=== PATIENT | female | born 1960 | race Caucasian/White ===

== ENCOUNTER 2018-06-22 11:32 | Inpatient (IN) | payer OTHER ==
[~2018-06-22] VITALS: Ht 157.5 cm; Wt 108.1 kg
--- NOTE | 2018-06-22 11:50 | NUR ---
58 YR OLD FEMALE ARRIVED VIA CARE FLIGHT FROM [facility] WITH C/O CP AND SOB. PT SEEN AT [facility] 3 DAYS FOR SAME, SENT HOME WITH INJHALERS, ABX AND STEROIDS. PT TODAY WITH BP ELEVATED "280 SYSTOLIC" TROPONIN ELEVATED. PT ARRIVED WITH HEPARIN GTT INFUSING, NTG INFUSING, PT RECEIVED 325MG ASPIRIN SOIL SURVEYOR, DUONEB, ZOFRAN AND LABELATOL. PT INITIALLY WITH NRB IN PLACE. PLACED ON NC AT 3L, SR PER MONITOR, AUTO BP AND PULSE OX IN PLACE.
[2018-06-22] MEDS ORDERED: ALBU8.5H8 INH (12:08)
[2018-06-22] MEDS ORDERED: AMOX-291 PO (12:08)
[2018-06-22] MEDS ORDERED: METH4TAB6 PO (12:08)
--- NOTE | 2018-06-22 12:30 | NUR ---
DR SHOOK AT BEDSIDE TO EVAL PT
--- NOTE | 2018-06-22 12:32 | NUR ---
PT CONT TO DENY CP AT THIS TIME, SR PER MONITOR.
[2018-06-22 13:10] LABS: MEAN CORPUSCULAR HEMOGLOBIN 26.7 pg (27.0-34.8); MEAN CORPUSCULAR HGB CONC 32.4 g/dL (32.4-35.8); MEAN CORPUSCULAR VOLUME 82.5 fL (80-100); MEAN PLATELET VOLUME 10.4 fL (7.4-10.4); PLATELET COUNT 250 x10^3/uL (130-400); RED BLOOD COUNT 5.48 x10^6/uL (3.82-5.3); RED CELL DISTRIBUTION WIDTH 15.9 % (9.6-15.2)
[2018-06-22 13:18] LABS: ALBUMIN 3.3 g/dL (3.4-5.0); ANION GAP 6 mmol/L (5-15); CALCIUM 8.6 mg/dL (8.5-10.1); CHLORIDE 105 mmol/L (98-107)
[2018-06-22 13:23] LABS: CREATININE 1.04 mg/dL (0.55-1.02)
[2018-06-22] MEDS ORDERED: HEPARIN 25,000 UNITS/500ML PMX 500 ML ONE (13:29)
[2018-06-22] MEDS ORDERED: HEPARIN 5,000 UNITS/ML, 1ML IV ONE (13:30)
[2018-06-22] MEDS ORDERED: HEPARIN 25,000 UNITS/500ML PMX 500 ML IV PRN (13:30)
[2018-06-22 13:37] LABS: BASOPHILS # (AUTO) 0.02 x10^3/uL (0-0.1); BASOPHILS % (AUTO) 0 % (0-1); EOSINOPHILS % (AUTO) 0 % (1-7); LYMPHOCYTES # (AUTO) 0.87 x10^3/uL (1-3.4); LYMPHOCYTES % (AUTO) 6 % (22-44); MD SCAN; MONOCYTES # (AUTO) 0.49 x10^3/uL (0.2-0.8); MONOCYTES % (AUTO) 4 % (2-9); NEUTROPHILS # (AUTO) 12.79 x10^3/uL (1.8-6.8); NEUTROPHILS % (AUTO) 90 % (42-75)
--- NOTE | 2018-06-22 13:43 | NUR ---
DISCUSSED WITH DR GUNTER, PT RECEIVED 5000 UNIT HEPARIN BOLUS AT 10 AM. HEPARIN GTT OFF FOR APPROX 1 HOUR. NO REBOLUS AT THIS TIME. HEPARIN GTT RESTARTED. ANTI XA ORDERED. PT TO CT VIA RAJAN.
--- NOTE | 2018-06-22 13:51 | NUR ---
REPORT CALLED TO DIMITRY MORIN ON TELE. POC DISCUSSED. PT RETURN TO ROOM FROM CT.
[2018-06-22] MEDS ORDERED: NITROGLYCERIN 0.4 MG/SPRAY SL PRN (14:00)
[2018-06-22] MEDS ORDERED: hydrALAzine 20 MG/ML, 1ML IVPush PRN (14:00)
[2018-06-22] MEDS ORDERED: LIDODERM 5% PATCH TD PRN (14:00)
[2018-06-22] MEDS ORDERED: ONDANSETRON ODT 4 MG PO PRN (14:00)
[2018-06-22] MEDS ORDERED: DOCUSATE 100 MG CAPSULE PO PRN (14:00)
[2018-06-22] MEDS ORDERED: NITROGLYCERIN 0.4 MG BOTTLE (25 TABS) SL PRN (14:00)
[2018-06-22] MEDS ORDERED: BISACODYL 10 MG SUPP PR PRN (14:00)
[2018-06-22] MEDS ORDERED: POLYETHYLENE GLYCOL 17 GM PACKET PO PRN (14:00)
[2018-06-22] MEDS ORDERED: ONDANSETRON 2MG/ML, 2ML IVPush PRN (14:00)
[2018-06-22] MEDS ORDERED: OMNIPAQUE 350 MG/ML, 100ML BOTTLE ONE (14:02)
[2018-06-22] MEDS ORDERED: ALBUTEROL/IPRATROPIUM 2.5MG/0.5MG, 3 ML HHN PRN (14:30)
[2018-06-22 14:45] VITALS: BP 143/87
[2018-06-22 14:47] LABS: ALANINE AMINOTRANSFERASE 48 U/L (12-78); ALBUMIN 3.2 g/dL (3.4-5.0); BILIRUBIN, DIRECT 0.2 mg/dL (0.1-0.2)
[2018-06-22 14:51] LABS: ALKALINE PHOSPHATASE 78 U/L (45-117); BILIRUBIN,INDIRECT 0.3 mg/dL (0.0-2.0); BILIRUBIN,TOTAL 0.5 mg/dL (0.2-1.0); FREE T4 (FREE THYROXINE) 0.86 ng/dL (0.76-1.46); TOTAL PROTEIN 6.7 g/dL (6.4-8.2)
[2018-06-22 15:10] VITALS: BP 150/65
[2018-06-22 15:34] LABS: HEMOGLOBIN A1C 6.1 % (4.2-6.3)
[2018-06-22 19:30] VITALS: BP 154/85
[2018-06-22] MEDS: GUAIFENESIN/DM 200-20MG, 10ML UDC PO PRN (20:43)
[2018-06-22] MEDS: ATORVASTATIN 40 MG TABLET PO SCH (20:43)
[2018-06-22] MEDS: HEPARIN 5,000 UNITS/ML, 1ML IV PRN (21:00)
[2018-06-23 01:16] VITALS: BP 169/91
[2018-06-23 02:40] LABS: MICROSCOPIC AUTO
[2018-06-23 02:42] LABS: CULTURE INDICATED? NO
[2018-06-23 02:50] LABS: AMPHETAMINE SCREEN, URINE Positive (Negative); BARBITURATE SCREEN, URINE Negative (Negative); BENZODIAZEPINE SCREEN, URINE Negative (Negative); CANNABINOID SCREEN, URINE Positive (Negative); COCAINE SCREEN, URINE Negative (Negative); METHADONE SCREEN, URINE Negative (Negative); OPIATE SCREEN, URINE Negative (Negative)
[2018-06-23] MEDS ORDERED: ALBUTEROL/IPRATROPIUM 2.5MG/0.5MG, 3 ML HHN PRN (03:30)
[2018-06-23 03:34] LABS: MEAN CORPUSCULAR HEMOGLOBIN 27.5 pg (27.0-34.8); MEAN CORPUSCULAR HGB CONC 33.1 g/dL (32.4-35.8); MEAN CORPUSCULAR VOLUME 83.1 fL (80-100); MEAN PLATELET VOLUME 11.5 fL (7.4-10.4); PLATELET COUNT 224 x10^3/uL (130-400); RED BLOOD COUNT 5.34 x10^6/uL (3.82-5.3); RED CELL DISTRIBUTION WIDTH 16.1 % (9.6-15.2)
[2018-06-23 03:40] LABS: ANION GAP 8 mmol/L (5-15); CALCIUM 8.7 mg/dL (8.5-10.1); CHLORIDE 105 mmol/L (98-107); CHOLESTEROL, TOTAL 178 mg/dL (140-239); CREATININE 0.97 mg/dL (0.55-1.02); TRIGLYCERIDES 102 mg/dL (50-200); VLDL CHOLESTEROL 20 mg/dL (0-25)
[2018-06-23] MEDS ORDERED: methylPREDNISolone SOD SUCC 125 MG/2 ML IVPush ONE (03:40)
[2018-06-23 03:42] LABS: HDL CHOL % 33 % (28-40); HDL CHOLESTEROL (DIRECT) 59 mg/dL (40-60); LDL CHOLESTEROL,CALCULATED 99 mg/dL (54-169); LDL/HDL RATIO 1.7 (0.5-3.0)
[2018-06-23 04:06] LABS: BASOPHILS # (AUTO) 0.03 x10^3/uL (0-0.1); BASOPHILS % (AUTO) 0 % (0-1); EOSINOPHILS # (AUTO) 0.01 x10^3/uL (0-0.4); EOSINOPHILS % (AUTO) 0 % (1-7); LYMPHOCYTES # (AUTO) 1.17 x10^3/uL (1-3.4); LYMPHOCYTES % (AUTO) 8 % (22-44); MD SCAN; MONOCYTES % (AUTO) 11 % (2-9); NEUTROPHILS # (AUTO) 11.49 x10^3/uL (1.8-6.8); NEUTROPHILS % (AUTO) 80 % (42-75)
[2018-06-23] MEDS: ASPIRIN 81 MG TABLET EC PO SCH (05:22)
[2018-06-23] MEDS: GUAIFENESIN/DM 200-20MG, 10ML UDC PO PRN ×2 (05:33→20:43)
[2018-06-23 08:26] VITALS: BP 180/89
[2018-06-23] MEDS: LISINOPRIL 10 MG TABLET PO SCH (09:04)
[2018-06-23 09:29] VITALS: BP 165/85
[2018-06-23] MEDS ORDERED: FUROSEMIDE 20 MG/2 ML ONE (09:34)
[2018-06-23] MEDS ORDERED: FUROSEMIDE 20 MG/2 ML IV ONE (10:00)
[2018-06-23] MEDS: HEPARIN 5,000 UNITS/ML, 1ML IV PRN (11:00)
[2018-06-23 12:53] VITALS: BP 166/86
[2018-06-23] MEDS ORDERED: VERAPAMIL 2.5 MG/ML, 2ML ONE (13:20)
[2018-06-23] MEDS ORDERED: LIDOCAINE-MPF 1%, 5ML ONE (13:20)
[2018-06-23] MEDS ORDERED: BIVALIRUDIN 250 MG ONE (13:20)
[2018-06-23] MEDS ORDERED: FENTANYL PF 100 MCG/2ML ONE (13:20)
[2018-06-23] MEDS ORDERED: MIDAZOLAM 1 MG/ML, 5ML ONE (13:20)
[2018-06-23] MEDS ORDERED: TICAGRELOR 90 MG TABLET ONE (13:20)
[2018-06-23] MEDS ORDERED: HEPARIN 1,000 UNITS/ML, 10ML ONE (13:20)
[2018-06-23] MEDS ORDERED: NITROGLYCERIN 5 MG/ML, 10ML ONE (13:35)
[2018-06-23 19:48] VITALS: BP 155/64
[2018-06-23] MEDS: ATORVASTATIN 40 MG TABLET PO SCH (20:42)
[2018-06-23] MEDS: methylPREDNISolone 4mg DOSE PACK PO SCH (21:05)
[2018-06-24 01:20] VITALS: BP 149/77
[2018-06-24] MEDS: ASPIRIN 81 MG TABLET EC PO SCH (05:23)
[2018-06-24 07:51] VITALS: BP 153/90
[2018-06-24] MEDS: LISINOPRIL 10 MG TABLET PO SCH (09:05)
[2018-06-24] MEDS: METOPROLOL TARTRATE 25 MG TABLET PO SCH ×2 (09:05→17:42)
[2018-06-24] MEDS: methylPREDNISolone 4mg DOSE PACK PO SCH ×2 (09:06→20:38)
[2018-06-24] MEDS ORDERED: LISINOPRIL 10 MG TABLET PO ONE (09:30)
[2018-06-24 09:48] LABS: MEAN CORPUSCULAR HGB CONC 32.2 g/dL (32.4-35.8); MEAN CORPUSCULAR VOLUME 83.8 fL (80-100); MEAN PLATELET VOLUME 11.8 fL (7.4-10.4); PLATELET COUNT 415 x10^3/uL (130-400); RED BLOOD COUNT 5.72 x10^6/uL (3.82-5.3); RED CELL DISTRIBUTION WIDTH 16.3 % (9.6-15.2)
[2018-06-24 09:55] LABS: ANION GAP 8 mmol/L (5-15); CALCIUM 8.7 mg/dL (8.5-10.1); CHLORIDE 103 mmol/L (98-107); CREATININE 1.21 mg/dL (0.55-1.02)
[2018-06-24 11:18] LABS: MD SCAN
[2018-06-24 11:19] LABS: BASOPHILS # (AUTO) 0.02 x10^3/uL (0-0.1); BASOPHILS % (AUTO) 0 % (0-1); EOSINOPHILS # (AUTO) 0.01 x10^3/uL (0-0.4); EOSINOPHILS % (AUTO) 0 % (1-7); LYMPHOCYTES # (AUTO) 1.89 x10^3/uL (1-3.4); LYMPHOCYTES % (AUTO) 9 % (22-44); MONOCYTES # (AUTO) 0.59 x10^3/uL (0.2-0.8); MONOCYTES % (AUTO) 3 % (2-9); NEUTROPHILS # (AUTO) 17.67 x10^3/uL (1.8-6.8); NEUTROPHILS % (AUTO) 88 % (42-75)
[2018-06-24 12:30] VITALS: BP 133/82
[2018-06-24] MEDS ORDERED: ATOR40TA78 PO (15:50)
[2018-06-24] MEDS ORDERED: DOCU-131 PO (15:50)
[2018-06-24] MEDS ORDERED: LEVO25TA2 PO (15:50)
[2018-06-24] MEDS ORDERED: ONDA4TAB13 PO (15:50)
[2018-06-24] MEDS ORDERED: NITR0.4T SL (15:50)
[2018-06-24] MEDS ORDERED: ASPI81TA45 PO (15:50)
[2018-06-24] MEDS ORDERED: LISI-170 PO (15:50)
[2018-06-24] MEDS ORDERED: METO25TA35 PO (15:50)
[2018-06-24 18:52] VITALS: BP 154/75
[2018-06-24] MEDS: ATORVASTATIN 40 MG TABLET PO SCH (20:38)
[2018-06-25 01:32] VITALS: BP 158/80
[2018-06-25] MEDS: ASPIRIN 81 MG TABLET EC PO SCH (05:43)
[2018-06-25] MEDS: METOPROLOL TARTRATE 25 MG TABLET PO SCH (05:44)
[2018-06-25] MEDS ORDERED: LEVOTHYROXINE 25 MCG TABLET PO SCH (06:00)
[2018-06-25 07:32] VITALS: BP 148/83
[2018-06-25] MEDS: methylPREDNISolone 4mg DOSE PACK PO SCH (08:44)
[2018-06-25] MEDS ORDERED: LISINOPRIL 20 MG TABLET PO SCH (09:00)
== END 2018-06-25 13:22 | disposition home health service (06) | DRG 280 ==
LOC: ED 12:28 → EDIP 12:34 → 5SO 14:33
PROVIDERS: ADMIT Hospitalist; ATTEND Hospitalist
PROC: 4A023N7 Measurement of Cardiac Sampling and Pressure, Left Heart, Percutaneous Approach (ICD-10-PCS; principal; 2018-06-22)
PROC: B2111ZZ Fluoroscopy of Multiple Coronary Arteries using Low Osmolar Contrast (ICD-10-PCS; 2018-06-22)
PROC: B2151ZZ Fluoroscopy of Left Heart using Low Osmolar Contrast (ICD-10-PCS; 2018-06-22)
DX: I21.4 Non-ST elevation (NSTEMI) myocardial infarction (principal); J96.01 Acute respiratory failure with hypoxia; N17.0 Acute kidney failure with tubular necrosis; I16.0 Hypertensive urgency; E03.9 Hypothyroidism, unspecified; F12.90 Cannabis use, unspecified, uncomplicated; I11.0 Hypertensive heart disease with heart failure; I50.9 Heart failure, unspecified; J44.9 Chronic obstructive pulmonary disease, unspecified; Z91.14 Patient's other noncompliance with medication regimen; F15.10 Other stimulant abuse, uncomplicated
CPT/HCPCS: 36415; 93458; 99285; J7620; 71275; 74174; 80048; 80061; 80076; 80307; 81001; 82040; 83036; 83605; 84439; 84443; 84484; 85025; 85520; 93005; 93306; 94640; 96374; 99156; C1769; C1894; G0378; J0583; J1644; J2250; J3010; J7509; Q9967; J0360; J1940; J2930